=== PATIENT | male | born 1980 | race Hispanic/Latino ===

== ENCOUNTER 2016-09-25 22:55 | Emergency (ER) | payer SELFPAY ==
[2016-09-25 22:59] VITALS: BP 128/77; RESP 16; TEMP 98.4; O2SAT 96
--- NOTE | 2016-09-25 23:58 | ED PDOC ---
HPI: Psych/Substance Abuse Time Seen by Provider: 09/25/16 23:03 Chief Complaint (Nursing): Alcohol Ingestion Past Medical History Vital Signs: Last Vital Signs Temp 98.4 F 09/25/16 22:57 Pulse 115 H 09/25/16 22:57 Resp 16 09/25/16 22:57 BP 128/77 09/25/16 22:57 Pulse Ox 96 09/25/16 22:57 - Home Medications Home Medications: Ambulatory Orders Medication Instructions Recorded No Known Home Med 09/25/16 - Allergies Allergies/Adverse Reactions: Allergies Allergy/AdvReac Type Severity Reaction Status Date / Time No Known Allergies Allergy Verified 09/25/16 22:59 - ECG O2 Sat by Pulse Oximetry: 96 Disposition - Clinical Impression Clinical Impression: Alcohol abuse - Patient ED Disposition Is Patient to be Admitted: No Counseled Patient/Family Regarding: Diagnosis, Need For Followup - Disposition Disposition: Routine/Home Disposition Time: 23:41 Condition: GOOD Instructions: Alcohol Intoxication (ED)
[2016-09-26 00:21] VITALS: PULSE 89
== END 2016-09-26 00:24 | disposition home or self-care (01) ==
LOC: H.ER 22:55
DX: F10.10 Alcohol abuse, uncomplicated (principal)